=== PATIENT | male | born 1995 | race Caucasian/White ===

== ENCOUNTER 2020-12-28 21:56 | Emergency (ER) | payer OTHER ==
[2020-12-28] MEDS ORDERED: BACITRACIN ZINC OINT 1 PACKET TOP STA (22:47)
[2020-12-28] MEDS ORDERED: LIDOCAINE 1%-EPI 1:100000 20 ML MDV SUBQ STA (22:48)
--- NOTE | 2020-12-28 23:21 | ED Physician Documentation ---
History of Present Illness - Stated complaint Stated Complaint: HEAD INJURY - Chief complaint Chief Complaint: Trauma Hd/Nk - History obtained from History obtained from: Patient - Additonal information Additional information: 25-year-old male, previously healthy presents with laceration to scalp from sharp edge of a missile at work for the [employer] today. Patient states that he ran into it and had immediate mild to moderate pain associated with bleeding, noting that he had a laceration to his scalp. This occurred today. He had a 4 out of 10 headache that has since resolved on its own. Denies nausea and vomiting vision changes, focal neurological deficits weakness or dizziness. Review of Systems Eyes: denies: Loss of vision Skin: reports: Laceration (s) Musculoskeletal: denies: Neck pain Neurologic: reports: Head injury. denies: Generalized weakness, Focal weakness, Numbness, LOC PD PAST MEDICAL HISTORY - Past Medical History Past Medical History: No - Past Surgical History Past Surgical History: Yes - Present Medications Home Medications: Ambulatory Orders Medication Instructions Recorded Confirmed No Known Home Medications 12/28/20 12/28/20 - Allergies Allergies/Adverse Reactions: Allergies Allergy/AdvReac Type Severity Reaction Status Date / Time Penicillins Allergy Hives Verified 12/28/20 22:08 - Social History Does the pt smoke?: No Smoking Status: Never smoker Does the pt drink ETOH?: Yes Does the pt have substance abuse?: No - Immunizations Immunizations are current?: Yes PD ED PE NORMAL - Vitals Vital signs reviewed: Yes - General General: Alert and oriented X 3, No acute distress - HEENT HEENT: Atraumatic, PERRL, EOMI, Other (Atraumatic with exception of 10 cm linear laceration that is superficial to the left parietal scalp, hemostatic.) - Neck Neck: No bony TTP - Neuro Neuro: Alert and oriented X 3 - Psych Psych: Normal mood, Normal affect Results - Vitals Vitals: Vital Signs - 24 hr 12/28/20 22:00 Temperature 36.3 C L Heart Rate 97 Respiratory 16 Rate Blood Pressure 136/83 H O2 Saturation 97 Oxygen O2 Source Room air Procedures - Laceration (location) Scalp left Length in cm: 10 Wound type: Linear Neurovascular status: Sensory intact, Motor intact, Vascular intact Anesthesia: Lidocaine 1% with epi Wound preparation: Irrigated copiously NS, Wound explored, To the base. No: FB identified Skin layer closure: [place] (15 elo) Other: Patient tolerated well, No complications, Tetanus UTD, Other (bacitracin applied. patient declined dressing) PD MEDICAL DECISION MAKING - ED course ED course: 25-year-old man, previously healthy presents with uncomplicated laceration of scalp. Repaired without incident. Return precautions given. He will follow up for staple removal in 10 to 14 days. Departure - Departure Disposition: 01 Home, Self Care Clinical Impression: Scalp laceration Condition: Good Instructions: ED Laceration Scalp Stitch Or Stap Comments: You are seen in the emergency department for laceration of your scalp. Please return for staple removal in 10 to 14 days. Monitor for signs signs of infection as we discussed. Return to the emergency department for any new or worsening symptoms or other concerns. Signs of concussion include nausea and vomiting vision changes severe headache confusion or weakness. You should be seen by Immediately if you develop the symptoms.
[2020-12-28 23:25] VITALS: BP 140/85
== END 2020-12-28 23:37 | disposition home or self-care (01) ==
LOC: ED 21:56
DX: S01.01XA Laceration without foreign body of scalp, initial encounter (principal); W26.8XXA Contact with other sharp object(s), not elsewhere classified, initial encounter; W22.09XA Striking against other stationary object, initial encounter; Y92.139 Unspecified place military base as the place of occurrence of the external cause; Y99.0 Civilian activity done for income or pay
CPT/HCPCS: 12004; 99281; 99282; A9270